=== PATIENT | female | born 1995 | race African-American/Black ===

== ENCOUNTER 2019-07-18 07:55 | Emergency (ER) | payer SELFPAY ==
[~2019-07-18] VITALS: Ht 152.4 cm; Wt 54.0 kg
[2019-07-18] MEDS ORDERED: PROMETHAZINE 25 MG/ML, 1ML IM ONE (08:00)
[2019-07-18] MEDS ORDERED: SODIUM CHLORIDE FLUSH 10ML SYR IVF ONE (08:00)
[2019-07-18] MEDS ORDERED: SODIUM CHLORIDE 0.9% 1,000ML IVBOLUS ONE (08:00)
--- NOTE | 2019-07-18 08:01 | NUR ---
PATIENT BROUGHT IN BY [facility] WITH CHIEF COMPLAINT OF N/V STRTIG AT 3AM THIS MORNING. THE PATIENT ARRIVED ALERT, & ORIENTED AND REPORTS ETOH LAST NIGHT. PER REPORT FROM [facility] THE PATIENT WAS MEDICATED WITH 4MG PO ZOFRAN AND 250 ML NS.
[2019-07-18] MEDS ORDERED: PROMETHAZINE 25 MG/ML, 1ML ONE (08:12)
[2019-07-18 08:23] LABS: BASOPHILS # (AUTO) 0.02 x10^3/uL (0-0.1); BASOPHILS % (AUTO) 0 % (0-1); EOSINOPHILS # (AUTO) 0.01 x10^3/uL (0-0.4); EOSINOPHILS % (AUTO) 0 % (1-7); LYMPHOCYTES # (AUTO) 1.51 x10^3/uL (1-3.4); LYMPHOCYTES % (AUTO) 11 % (22-44); MD NO; MEAN CORPUSCULAR HEMOGLOBIN 33.2 pg (27.0-34.8); MEAN CORPUSCULAR HGB CONC 32.8 g/dL (32.4-35.8); MEAN CORPUSCULAR VOLUME 100.9 fL (80-100); MEAN PLATELET VOLUME 8.9 fL (7.4-10.4); MONOCYTES # (AUTO) 0.04 x10^3/uL (0.2-0.8); MONOCYTES % (AUTO) 0 % (2-9); NEUTROPHILS # (AUTO) 11.72 x10^3/uL (1.8-6.8); NEUTROPHILS % (AUTO) 88 % (42-75); PLATELET COUNT 278 x10^3/uL (130-400); RED BLOOD COUNT 4.33 x10^6/uL (3.82-5.3); RED CELL DISTRIBUTION WIDTH 13.3 % (9.6-15.2)
[2019-07-18] MEDS ORDERED: PLEASE ENTER ALLERGIES MC SCH (08:30)
[2019-07-18] MEDS ORDERED: PLEASE ENTER HEIGHT AND WEIGHT MC SCH (08:30)
[2019-07-18 08:31] LABS: ALANINE AMINOTRANSFERASE 31 U/L (12-78); ALBUMIN 4.4 g/dL (3.4-5.0); ANION GAP 9 mmol/L (5-15); CALCIUM 8.8 mg/dL (8.5-10.1); CHLORIDE 111 mmol/L (98-107); CREATININE 0.84 mg/dL (0.55-1.02)
[2019-07-18 08:36] LABS: ALKALINE PHOSPHATASE 76 U/L (45-117); BILIRUBIN,TOTAL 0.4 mg/dL (0.2-1.0); TOTAL PROTEIN 8.5 g/dL (6.4-8.2)
[2019-07-18] MEDS ORDERED: HALOPERIDOL 5 MG/ML ONE (08:53)
[2019-07-18] MEDS ORDERED: HALOPERIDOL 5 MG/ML IM ONE (09:00)
--- NOTE | 2019-07-18 09:00 | NUR ---
PATIENT COMPLAING OF CHEST PRESSURE- ERMD NOTIFIED
[2019-07-18] MEDS ORDERED: DIPHENHYDRAMINE 50 MG/ML, 1ML ONE (09:21)
[2019-07-18] MEDS ORDERED: DIPHENHYDRAMINE 50 MG/ML, 1ML IVPush ONE (09:30)
--- NOTE | 2019-07-18 10:06 | NUR ---
PATIENT AGITATED DUE TO WAIT, REASSURANCE PROVIDED.
--- NOTE | 2019-07-18 10:44 | NUR ---
ERMD AT BEDSIDE TO DISCUSS POC
--- NOTE | 2019-07-18 11:07 | NUR ---
ERMD AWARE THAT PATIENT DOESNT FEEL WELL TO DC- MD DISCUSSED RESULTS AND PLAN WITH PT. IT PROGRAMMER NOTIFIED.
[2019-07-18 11:16] VITALS: BP 114/67
--- NOTE | 2019-07-18 11:16 | NUR ---
AGAIN DISCHARGE INSTRUCTIOND REVIEWED.
== END 2019-07-18 11:37 ==
LOC: ED 11:25
DX: R11.2 Nausea with vomiting, unspecified (principal); R00.0 Tachycardia, unspecified
CPT/HCPCS: 36415; 74022; 80053; 83690; 84703; 85025; 93005; 96361; 96372; 96374; 99284; J1200; J1630; J2550; J7030